=== PATIENT | female | born 1975 | race African-American/Black ===

== ENCOUNTER 2016-09-19 13:11 | Emergency (ER) | payer MEDICAID | END 2016-09-19 15:20 | disposition home or self-care (01) | LOC: D.ER 13:11 | DX: R51 Headache (principal) ==

== ENCOUNTER 2016-12-06 18:06 | Emergency (ER) | payer MEDICAID | END 2016-12-06 23:45 | disposition home or self-care (01) | LOC: D.ER 18:06 | DX: G43.909 Migraine, unspecified, not intractable, without status migrainosus (principal) ==

== ENCOUNTER 2017-05-20 11:30 | Emergency (ER) | payer MEDICAID ==
[2017-05-20 17:09] LABS: BASOPHILS 0.2 % (0-2); EOSINOPHILS 2.1 % (0-7); IMMATURE GRANULOCYTES 0.1 % (0-5); LYMPHOCYTES 28.9 % (15-50); MCH 28.1 pg (26.0-34.0); MCHC 33.3 g/dL (31.0-37.0); MCV 84.4 fL (80.0-100.0); MEAN PLATELET VOLUME 9.2 fL (7.4-10.4); MONOCYTES 5.1 % (2-11); NEUTROPHILS 63.6 % (40-80); PLATELET COUNT 283 10x3/uL (130-400); RBC 4.62 10x6/uL (4.00-5.40); WBC 9.1 10x3/uL (4.8-10.8)
[2017-05-20 17:50] LABS: ALBUMIN 3.3 g/dL (3.4-5.0); ALKALINE PHOSPHATASE 116 U/L (46-116); ALT (SGPT) 31 U/L (10-68); BILIRUBIN - TOTAL 0.54 mg/dL (0.2-1.3); CALC OSMOLALITY 275 mosm/kg (275-300); CALCIUM 8.9 mg/dL (8.5-10.1); CARBON DIOXIDE 24.5 mmol/L (21.0-32.0); CHLORIDE - SERUM 105 mmol/L (98-107); CREATININE - SERUM 0.6 mg/dL (0.6-1.3); GLUCOSE 83 mg/dL (74-106); POTASSIUM - SERUM 3.9 mmol/L (3.5-5.1); PROTEIN - SERUM 6.8 g/dL (6.4-8.2); SODIUM 140 mmol/L (136-145); UREA NITROGEN 8 mg/dL (7-18); eGFR NON AFRICAN AMERICAN > 90 mL/min (90-120)
== END 2017-05-20 19:47 | disposition home or self-care (01) ==
LOC: D.ER 11:30
PROVIDERS: Physician Assistant
DX: Z86.69 Personal history of other diseases of the nervous system and sense organs (principal); R51 Headache

== ENCOUNTER 2019-08-17 02:36 | Emergency (ER) | payer SELFPAY ==
[~2019-08-17] VITALS: Ht 149.9 cm; Wt 90.9 kg
[2019-08-17 02:41] VITALS: Ht 149.9 cm; Wt 90.9 kg
[2019-08-17] MEDS ORDERED: HYDROCODON-ACE1 EAC7 PO (04:34)
[2019-08-17 04:45] VITALS: BP 185/81
== END 2019-08-17 04:45 | disposition home or self-care (01) ==
LOC: D.ER 02:36
DX: S20.212A Contusion of left front wall of thorax, initial encounter (principal); W19.XXXA Unspecified fall, initial encounter; Y93.9 Activity, unspecified; Y92.9 Unspecified place or not applicable

== ENCOUNTER 2020-01-29 19:00 | Outpatient (CLI) | payer OTHER ==
[2019-08-17 02:41] VITALS: BMI 40.5
[~2020-01-29 19:00] MED LIST: HYDROCODON-ACE1 EAC7 PO
== END 2020-01-29 23:59 | disposition home or self-care (01) ==
LOC: D.MAMMO 19:00
PROVIDERS: ATTEND Nurse Practitioner Family
DX: Z12.31 Encounter for screening mammogram for malignant neoplasm of breast (principal)

== ENCOUNTER → 2020-03-16 08:10 | Outpatient (CLI) | payer OTHER ==
[2019-08-17 02:41] VITALS: BMI 40.5
== END | disposition home or self-care (01) ==
LOC: D.MRI 08:10
PROVIDERS: ATTEND Psychiatry & Neurology Neurology
DX: Q07.00 Arnold-Chiari syndrome without spina bifida or hydrocephalus (principal)

== ENCOUNTER → 2021-01-04 11:14 | Outpatient (CLI) | payer OTHER ==
[2019-08-17 02:41] VITALS: BMI 40.5
== END | disposition home or self-care (01) ==
LOC: D.US 11:00
PROVIDERS: ATTEND Nurse Practitioner
DX: R22.2 Localized swelling, mass and lump, trunk (principal)

== ENCOUNTER → 2021-01-19 10:02 | Outpatient (CLI) | payer OTHER ==
[2019-08-17 02:41] VITALS: BMI 40.5
== END | disposition home or self-care (01) ==
LOC: D.CT 10:00
PROVIDERS: ATTEND Nurse Practitioner
DX: R22.2 Localized swelling, mass and lump, trunk (principal)

== ENCOUNTER 2021-02-16 08:43 | Day surgery (SDC) | payer OTHER ==
[~2021-02-16] VITALS: Ht 149.9 cm; Wt 88.9 kg
[~2021-02-16 08:43] MED LIST changes: +NORVASC5 MG PO; +PAMELOR 25 MG C25 MG PO; +SINGULAIR10 MG; +ZANAFLEX4 MG
[2021-02-16 09:11] LABS: BASOPHILS 0.5 % (0-2); EOSINOPHILS 3.3 % (0-7); HEMATOCRIT 41.4 % (36.0-48.0); HEMOGLOBIN 13.7 g/dL (12-16); LYMPHOCYTES 17.3 % (15-50); MCH 28.6 pg (26.0-34.0); MCV 86.7 fL (80.0-100.0); MEAN PLATELET VOLUME 7.1 fL (7.4-10.4); MONOCYTES 5.2 % (2-11); NEUTROPHILS 73.7 % (40-80); PLATELET COUNT 361 10x3/uL (130-400); RBC 4.78 10x6/uL (4.00-5.40); RDW 14.2 % (11.5-14.5); WBC 9.8 10x3/uL (4.8-10.8)
[2021-02-16 09:26] LABS: CALC OSMOLALITY 278 mosm/kg (275-300); CALCIUM 8.3 mg/dL (8.5-10.1); CARBON DIOXIDE 29.7 mmol/L (21.0-32.0); CHLORIDE - SERUM 105 mmol/L (98-107); CREATININE - SERUM 0.7 mg/dL (0.6-1.3); GLUCOSE 92 mg/dL (74-106); POTASSIUM - SERUM 3.6 mmol/L (3.5-5.1); SODIUM 141 mmol/L (136-145); UREA NITROGEN 8 mg/dL (7-18); eGFR NON AFRICAN AMERICAN > 90 mL/min (90-120)
[2021-02-16 11:06] VITALS: BP 140/85; Ht 149.9 cm; Wt 88.9 kg
--- NOTE | 2021-02-16 15:00 | NUR ---
DISCHARGED VIA W/C, ACCOMPANIED BY THIS NURSE, TO POV WITH SPOUSE DRIVING. ALL BELONGINGS WITH PT/SPOUSE.
--- NOTE | 2021-02-20 14:25 | OP ---
PATIENT NAME: DARLINE SCRUGGS MEDICAL RECORD: [id number] LOCATION:D.OPS ADMISSION DATE: SURGEON: DADA CHACKO MD DATE OF OPERATION: 02/16/2021 PREOPERATIVE DIAGNOSIS: Left supraclavicular lipoma. POSTOPERATIVE DIAGNOSIS: Left supraclavicular lipoma. Please see dimensions below. PROCEDURE: Excision of left supraclavicular lipoma. SURGEON: Dada Chacko MD LVN: None. BLOOD LOSS: Minimal. ANESTHESIA: General. COMPLICATIONS: None. The lipoma measures 6 cm in the anterior posterior dimension and 2.5 cm in the medial and lateral dimension. Included in the risks is injury to the 11th cranial nerve. Preoperatively, the patient had excellent left 11th cranial nerve function. The patient was conveyed to the operating room electively on 02/16/2021. General anesthesia was induced by the anesthesia staff. An incision was accomplished from anterior to posterior overlying the lipoma. I dissected down to the lipomatous tissue, which was removed in a piecemeal fashion. I identified no 11th cranial nerve. I removed some surrounding connective tissue sharply in order to prevent the lipoma from recurring. The closure was an intermediate closure. Interrupted 3-0 Vicryl for the subdermis as well as a running intracuticular 3-0 Vicryl for the skin and a sterile dressing was applied. The patient is going to be dismissed home on a narcotic analgesic. I will see her in the office in 2 to 3 weeks. In the recovery room, I had her shrug her shoulders and she had excellent left cranial nerve 11 function. TRANSINT:[id number] Voice Confirmation ID: [id number] DOCUMENT ID: [id number] DADA CHACKO MD at 1425 CC: [id number] DICTATION DATE: 02/19/21 1302 ASSISTANT TODDLER TEACHER: 02/19/212025 [facility] 02/16/[address] [address]
== END 2021-02-16 15:00 | disposition home or self-care (01) ==
LOC: D.OPS 08:43
PROVIDERS: Anesthesiology; ATTEND Surgery
DX: R22.2 Localized swelling, mass and lump, trunk (principal); I10 Essential (primary) hypertension